=== PATIENT | female | born 1990 | race Caucasian/White ===

== ENCOUNTER 2018-11-22 14:53 | Outpatient (CLI) | payer OTHER | END 2018-11-22 16:08 | disposition home or self-care (01) | LOC: OBT 14:53 → L-D 14:54 → OBT 16:08 | DX: O36.8120 Decreased fetal movements, second trimester, not applicable or unspecified (principal); Z3A.22 22 weeks gestation of pregnancy | CPT/HCPCS: 76815; 76817 ==